=== PATIENT | female | born 1960 | race Caucasian/White ===

== ENCOUNTER 2016-06-20 18:50 | Observation (INO) | payer OTHER ==
[~2016-06-20] VITALS: Ht 170.2 cm; Wt 70.5 kg
[~2016-06-20 18:50] MED LIST: ACET1TAB46 PO; ALBU8.5H3 INH; ALBU8.5H6 IH; ATOR20TA PO; BENZ100C PO; CHOL1CRY3 MC; CYCL10TA2 PO; DOXY-103 PO; FERR-26 PO; FLUT1DIS5 IH; FOLI1TAB16 PO; FURO-68 PO; HYDR-2762 PO; HYDR-2868 PO; HYDR115S2 PO; IPRA3AMP23 IH; LIDO700A4 TP; MERO500V3 IV; METH29OI TP; METO100T11 PO; MORP15TA34 PO; MUPI22OI TP; NIAC10002 PO; NICO1PAT5 TD; NITR0.4T6 SL; NYST15CR2 TP; NYST1POW2 PO; ONDA4TAB7 PO; PANT40TA3 PO; PANT40TA5 PO; PHEN14.52 MM; PRED20TA PO; PREG100C PO; QUET25TA5 PO; RIVA20TA2 PO; SPIR100T PO; SPIR25TA3 PO; SULF1TAB24 PO; TEMA15CA PO; TERI2.4P SQ; TIOT18CA IH; WARF6TAB PO; ZINC220C4 PO
[2016-06-20] MEDS ORDERED: ONDANSETRON PF 4 MG/2 ML VIAL. IV PRN (20:30)
[2016-06-20 20:48] LABS: BASO # 0.1 x10^3/uL (0.0-0.2); BASO % 1 % (0-3); EOS # 0.1 x10^3/uL (0.0-0.7); LYMPH # 1.7 x10^3/uL (1.0-4.8); LYMPH % 21 % (24-48); MEAN CORPUSCULAR HEMOGLOBIN 29 pg (25-35); MEAN CORPUSCULAR HGB CONC 31 g/dL (31-37); MEAN CORPUSCULAR VOLUME 92 fL (79-100); MONO # 0.7 x10^3/uL (0.0-1.1); NEUT # 5.5 x10^3uL (1.8-7.7); RED BLOOD COUNT 2.14 x10^6/uL (3.50-5.40); WHITE BLOOD COUNT 8.1 x10^3/uL (4.0-11.0)
[2016-06-20 20:49] LABS: CALCIUM 8.8 mg/dL (8.5-10.1); CREATININE 2.7 mg/dL (0.6-1.0); GFR 18.2; POTASSIUM 3.7 mmol/L (3.5-5.1)
[2016-06-20 20:53] LABS: PLATELET COUNT 196 x10^3/uL (140-400)
[2016-06-20 20:54] LABS: EOS % 1 % (0-3); MONO % 8 % (0-9); NEUT % 69 % (31-73)
[2016-06-20 20:56] LABS: HEMATOCRIT 19.7 % (36.0-47.0); HEMOGLOBIN 6.1 g/dL (12.0-15.5)
[2016-06-20 22:13] VITALS: BP 168/96
[2016-06-20] MEDS ORDERED: TRAM50TA PO (22:50)
[2016-06-20] MEDS ORDERED: AMLO2.5T2 PO (22:50)
[2016-06-20 23:10] VITALS: BP 130/84
[2016-06-20] MEDS: HYDROCODONE/APAP 7.5/325MG TABLET. PO PRN (23:22)
[2016-06-20] MEDS ORDERED: IV NORMAL SALINE 500ML 500 ML ONE (23:33)
[2016-06-20 23:37] VITALS: BP 141/80
[2016-06-20 23:52] VITALS: BP 136/74
[2016-06-21] VITALS (10 sets, daily range): BP systolic 125–172; BP diastolic 75–103
--- NOTE | 2016-06-21 01:23 | PHYS DOC ---
Past History Past Medical History: Asthma, Bronchitis, COPD, GERD, High Cholesterol, Hypertension Past Surgical History: Cholecystectomy Smoking: Cigarettes Alcohol Use: Rarely Drug Use: None Adult General Chief Complaint Chief Complaint: ABNORMAL LABS HPI HPI 56-year-old female with multiple medical problems including chronic renal failure and COPD presents from her primary care physician's office secondary to a very low hemoglobin and hematocrit. Patient reports that the hemoglobin and hematocrit were 5 and 15. Patient states she has been more short of breath than usual. She denies any fever chills or sweats. She denies any melena or hematemesis. She states she has had a low blood count in the past. [] Review of Systems Review of Systems Constitutional: Denies fever or chills [] Eyes: Denies change in visual acuity, redness, or eye pain [] HENT: Denies nasal congestion or sore throat [] Respiratory: Denies cough or shortness of breath [] Cardiovascular: No additional information not addressed in HPI [] GI: Denies abdominal pain, nausea, vomiting, bloody stools or diarrhea [] : Denies dysuria or hematuria [] Musculoskeletal: Denies back pain or joint pain [] Integument: Denies rash or skin lesions [] Neurologic: Denies headache, focal weakness or sensory changes [] Endocrine: Denies polyuria or polydipsia [] Allergies Allergies Allergies Coded Allergies Type Severity Reaction Last Updated Verified Penicillins Allergy Intermediate Rash 06/29/14 Yes ciprofloxacin Allergy Intermediate RASH- TOLERATES LEVAQUIN 06/29/14 Yes citric acid Allergy Intermediate ALLERGY IS TO CITRUS AND DERIVATIVES 06/29/14 Yes codeine Allergy Intermediate Itching 06/29/14 Yes latex Allergy Intermediate 06/29/14 Yes acetaminophen Allergy Unknown 06/08/14 No aloe vera Allergy Unknown 06/08/14 No Uncoded Allergies Type Severity Reaction Last Updated Verified mushrooms Allergy Unknown 03/15/13 Physical Exam Physical Exam Constitutional: Well developed, well nourished, no acute distress, non-toxic appearance, very talkative. [] HENT: Normocephalic, atraumatic, bilateral external ears normal, oropharynx moist, no oral exudates, nose normal. [] Eyes: PERRLA, EOMI, conjunctiva normal, no discharge. [] Neck: Normal range of motion, no tenderness, supple, no stridor. [] Cardiovascular:Heart rate regular rhythm, no murmur [] Lungs & Thorax: Bilateral breath sounds clear to auscultation [] Abdomen: Bowel sounds normal, soft, no tenderness, no masses, no pulsatile masses. [] Skin: Pale. [] Back: No tenderness, no CVA tenderness. [] Extremities: No tenderness, no cyanosis, no clubbing, ROM intact, no edema. [] Neurologic: Alert and oriented X 3, normal motor function, normal sensory function, no focal deficits noted. [] Psychologic: Affect normal, judgement normal, mood normal. [] Current Patient Data Vital Signs Vital Signs Date Time Temp Pulse Resp B/P Pulse Ox O2 Delivery O2 Flow Rate FiO2 06/21/16 01:00 98.0 73 19 140/75 06/21/16 00:22 98 Nasal Cannula 2.0 Lab Results Laboratory Tests Test 06/20/16 20:25 White Blood Count 8.1x10^3/uL (4.0-11.0) Red Blood Count 2.14x10^6/uL (3.50-5.40) L Hemoglobin 6.1g/dL (12.0-15.5) *L Hematocrit 19.7% (36.0-47.0) *L Mean Corpuscular Volume 92fL (79-100) Mean Corpuscular Hemoglobin 29pg (25-35) Mean Corpuscular Hemoglobin Concent 31g/dL (31-37) Red Cell Distribution Width 17.0% (11.5-14.5) H Platelet Count 196x10^3/uL (140-400) Neutrophils (%) (Auto) 69% (31-73) Lymphocytes (%) (Auto) 21% (24-48) L Monocytes (%) (Auto) 8% (0-9) Eosinophils (%) (Auto) 1% (0-3) Basophils (%) (Auto) 1% (0-3) Neutrophils # (Auto) 5.5x10^3uL (1.8-7.7) Lymphocytes # (Auto) 1.7x10^3/uL (1.0-4.8) Monocytes # (Auto) 0.7x10^3/uL (0.0-1.1) Eosinophils # (Auto) 0.1x10^3/uL (0.0-0.7) Basophils # (Auto) 0.1x10^3/uL (0.0-0.2) Prothrombin Time 10.8SEC (9.4-11.4) Prothrombin Time INR 1.1 (0.9-1.1) Sodium Level 138mmol/L (136-145) Potassium Level 3.7mmol/L (3.5-5.1) Chloride Level 102mmol/L (98-107) Carbon Dioxide Level 28mmol/L (21-32) Anion Gap 8 (6-14) Blood Urea Nitrogen 44mg/dL (7-20) H Creatinine 2.7mg/dL (0.6-1.0) H Estimated GFR (Cockcroft-Gault) 18.2 Glucose Level 100mg/dL (70-99) H Calcium Level 8.8mg/dL (8.5-10.1) EKG EKG [] Radiology/Procedures Radiology/Procedures [] Course & Med Decision Making Course & Med Decision Making Pertinent Labs and Imaging studies reviewed. (See chart for details) [ED course: Evaluation reveals a 56-year-old female who appears pale. Her hemoglobin and hematocrit have actually improved from that which was drawn earlier in the day. A type and crossed her for 2 units of packed red blood cells to be transfused. I spoke with Dr. Jones who agreed to admit the patient for further evaluation.] Dragon Disclaimer Dragon Disclaimer This chart was dictated in whole or in part using Voice Recognition software in a busy, high-work load, and often noisy Emergency Department environment. It may contain unintended and wholly unrecognized errors or omissions. Departure Departure: Impression: Primary Impression: Anemia Disposition: 09 ADMITTED INPATIENT Condition: STABLE Referrals: MYRNA COMBS MD (PCP) Problem Qualifiers Primary Impression: Anemia Anemia type: iron deficiency Iron deficiency anemia type: unspecified iron deficiency Qualified Code: D50.9 - Iron deficiency anemia, unspecified ALYSHA MUELLER DO Jun 21, 2016 01:23
--- NOTE | 2016-06-21 01:31 | ACF ---
Admission Criteria Forms ANEMIA, IRON DEFICIENCY OR UNSPECIFIED Clinical Indications for Inpatient Care (Place 'X' for any and all applicable criteria): Admission is indicated for ANY ONE of the following(1)(2)(3)(4)(5)(6)(7): [X] I. Inpatient admission required rather than observation care (Also use Anemia, Iron Deficiency or Unspecified: Observation Care guideline as appropriate) because of ANY ONE of the following: [] a) Hemodynamic instability that is severe or persistent [] b) Active bleeding that cannot be rapidly controlled [] c) CVS symptoms (i.e., dyspnea, chest pain, heart failure) that are severe or persistent [] d) Neurologic symptoms (i.e., cognitive impairment, recurrent syncope or near syncope) that are severe or persistent [] e) Cardiac arrhythmias of immediate concern [] f) Acute peripheral ischemia (e.g., pulseless, cool, mottled, or cyanotic extremity) [] g) High-risk low platelet count [] h) Acute renal failure [] i) Ongoing transfusion for blood loss (greater than 2 units) [] j) IV fluid to replace significant ongoing (eg, >24 hours) losses (> 3 L/m2 per day) [] k) Pulmonary artery catheter monitoring [] l) Supplemental oxygen or respiratory treatments for over 24 hours that are performable only in acute inpatient setting [] m) Immediate inpatient surgery [X] n) Other condition, treatment or monitoring requiring inpatient admission [] II Active massive hemorrhage [] III. Active hemolysis with rapidly progressive anemia [A](6) Extended stay beyond goal length of stay may be needed for (17)(18) []a) Diagnosed cause of anemia requiring longer hospitalization (eg, active GI bleeding, immune hemolysis requiring electrophoresis, complications of malignancy requiring acute care []b) Continued emergent anemia indicators (23) []c) Transfusion reactions []d) Associated leukopenia or thrombocytopenia needing inpatient care []e) Active comorbidities (eg, renal failure, heart failure) The original [facility] Care Guidelines content created by [facility] has been revised. The portions of the content which have been revised are identified through the use of italic text or in bold. [facility] Guidelines has neither reviewed nor approved the modified material. All other unmodified content is copyright [facility] Care Guidelines. Please see references footnoted in the original [facility] edition 2016 Admission Criteria Met?: Yes SARAHI MOTLEY Jun 21, 2016 01:31
[2016-06-21] MEDS: HYDROCODONE/APAP 7.5/325MG TABLET. PO PRN (05:14)
[2016-06-21] MEDS ORDERED: IPRATRPIUM/ALBUTEROL 0.5/2.5MG 3 ML NEBU. ONE (05:30)
[2016-06-21 06:18] LABS: CALCIUM 8.5 mg/dL (8.5-10.1); CREATININE 2.6 mg/dL (0.6-1.0); POTASSIUM 3.9 mmol/L (3.5-5.1)
[2016-06-21 06:23] LABS: BASO # 0.1 x10^3/uL (0.0-0.2); BASO % 1 % (0-3); EOS # 0.2 x10^3/uL (0.0-0.7); EOS % 2 % (0-3); HEMATOCRIT 24.2 % (36.0-47.0); HEMOGLOBIN 7.8 g/dL (12.0-15.5); LYMPH # 2.2 x10^3/uL (1.0-4.8); LYMPH % 27 % (24-48); MEAN CORPUSCULAR HEMOGLOBIN 29 pg (25-35); MEAN CORPUSCULAR HGB CONC 32 g/dL (31-37); MEAN CORPUSCULAR VOLUME 91 fL (79-100); MONO # 0.8 x10^3/uL (0.0-1.1); MONO % 10 % (0-9); NEUT # 4.9 x10^3uL (1.8-7.7); NEUT % 60 % (31-73); PLATELET COUNT 152 x10^3/uL (140-400); RED BLOOD COUNT 2.66 x10^6/uL (3.50-5.40); RED CELL DISTRIBUTION WIDTH 16.5 % (11.5-14.5); WHITE BLOOD COUNT 8.1 x10^3/uL (4.0-11.0)
[2016-06-21] MEDS ORDERED: TRAMADOL 50 MG TABLET. PO PRN (08:00)
[2016-06-21] MEDS ORDERED: NITROGLYCERIN SUBLINGUAL 0.4 MG BOTTLE OF 25. SL SCH (08:00)
[2016-06-21] MEDS ORDERED: IPRATRPIUM/ALBUTEROL 0.5/2.5MG 3 ML NEBU. IH PRN (08:00)
[2016-06-21] MEDS ORDERED: IPRATRPIUM/ALBUTEROL 0.5/2.5MG 3 ML NEBU. NEB SCH (08:00)
[2016-06-21] MEDS ORDERED: ALBUTEROL SULFATE 2.5 MG/3 ML NEBU. NEB SCH (08:15)
[2016-06-21] MEDS ORDERED: ALBUTEROL SULFATE 2.5 MG/3 ML NEBU. NEB PRN (08:30)
[2016-06-21] MEDS ORDERED: METOPROLOL SUCC 24HR ER 50 MG TAB.ER.24H. PO SCH (09:00)
[2016-06-21] MEDS ORDERED: NON FORMULARY ITEM (Fluticasone/Salmeterol (Advair 500-50 Diskus) 1 EACH) IH SCH (09:00)
[2016-06-21] MEDS ORDERED: FERROUS SULFATE 325 MG TABLET PO SCH (09:00)
[2016-06-21] MEDS ORDERED: PANTOPRAZOLE 40 MG TABLET. PO SCH (09:00)
[2016-06-21] MEDS ORDERED: AMLODIPINE BESYLATE 2.5 MG TABLET PO SCH (09:00)
[2016-06-21] MEDS ORDERED: FOLIC ACID 1 MG TABLET PO SCH (09:00)
[2016-06-21] MEDS ORDERED: PREGABALIN 100 MG CAPSULE PO SCH (09:00)
[2016-06-21] MEDS ORDERED: CYCLOBENZAPRINE 10 MG TABLET. PO SCH (09:00)
[2016-06-21] MEDS ORDERED: CHOLECALCIFEROL 1 GM MC SCH (09:00)
--- NOTE | 2016-06-21 13:13 | SSS ---
ADMIT DATE: 06/21/2016 Care was given in its entirety by Dr. Ana Tony. Stay was greater than 8 hours and less than 24 hours. DISCHARGE DIAGNOSES: 1. Severe anemia. 2. Status post blood transfusion. 3. Chronic renal failure. 4. Continued tobacco use disorder. 5. History of hematuria. 6. Hypercholesterolemia. 7. Hypertension. 8. Right hemiplegia. 9. Fall risk. BRIEF HOSPITALIZATION: This is a 56-year-old female, who was sent to the Emergency Room because of hemoglobin of 5 and 15 from her primary care doctor's office. The hemoglobin was 6.1 in the Emergency Room and she was admitted. She received 2 units of packed cells, which she tolerated well. The patient has had extensive workup for hematuria including clots that happened sometimes when her catheterizes her. She also has intermittently very clear urine without blood, but no cause of the hematuria can be ascertained. She does have chronic renal failure and atrophic kidneys. She states that she is under the care of a renal doctor. ALLERGIES: PENICILLIN, TYLENOL, ALOE VERA, CIPRO, CITRIC ACID, CODEINE, LATEX, and MUSHROOMS. MEDICATIONS: Reviewed and are available on the MAR. HOSPITAL COURSE: She was admitted, received 2 units of packed cells. There is no evidence of bleeding or hematuria and she tolerated the blood transfusions. PHYSICAL EXAMINATION: VITAL SIGNS: Blood pressure was 172/97, pulse 83, pulse ox 97% on 2 liters. GENERAL: Color is pale. HEENT: Her tongue was moist. She is edentulous. NECK: Supple. LUNGS: Clear. CARDIOVASCULAR: Regular rhythm and rate. ABDOMEN: Soft, nontender. EXTREMITIES: Without edema. NEUROLOGIC: She has right hemiplegia. LABORATORY DATA: BUN is 40, creatinine is 2.6 and her discharge hemoglobin was 7.8. DISPOSITION: To home, to keep a close eye on any further bleeding, return if any bleeding is observed. Follow up with Dr. Loera next week and all old scans were reviewed as well, but if she needs some type of EGD and colonoscopy, will have to be done as an outpatient. We will leave that to her primary care doctor. ANA TONY DO DR: BO/rekha JOB#: [id number] / [id number]
[2016-06-21] MEDS ORDERED: BUDESONIDE 0.5 MG/2 ML NEBU NEB SCH (20:00)
[2016-06-21] MEDS ORDERED: ATORVASTATIN CALCIUM 10 MG TABLET. PO SCH (21:00)
== END 2016-06-21 10:21 | disposition home or self-care (01) ==
LOC: ER 18:52 → INTOOBSV 20:24 → ICU 20:24
PROVIDERS: ADMIT Family Medicine; ATTEND Family Medicine
DX: D64.9 Anemia, unspecified (principal); I12.9 Hypertensive chronic kidney disease with stage 1 through stage 4 chronic kidney disease, or unspecified chronic kidney disease; N18.9 Chronic kidney disease, unspecified; Z72.0 Tobacco use; R31.9 Hematuria, unspecified; E78.00 Pure hypercholesterolemia, unspecified; J44.9 Chronic obstructive pulmonary disease, unspecified; J45.909 Unspecified asthma, uncomplicated; Z91.81 History of falling
CPT/HCPCS: 36415; 80048; 85027; 85610; 86850; 86900; 86901; 86920; 87641; 94640; G0378; G0379; J7040; P9016; J7620; 99285-25

== ENCOUNTER → 2017-01-04 | Outpatient (CLI) | payer OTHER ==
[2016-06-21 08:55] VITALS: BP 172/97
[~2017-01-04] MED LIST changes: +ACET-422 PO; -ACET1TAB46 PO; -ALBU8.5H3 INH; +ALBU8.5H8 INH; +AMLO2.5T2 PO; +CYCL-331 PO; -CYCL10TA2 PO; -DOXY-103 PO; +DOXY100T10 PO; +MERO500V15 IV; -MERO500V3 IV; +METO-247 PO; -METO100T11 PO; -MORP15TA34 PO; +MORP15TA80 PO; +NITR0.4T22 SL; -NITR0.4T6 SL; +TRAM50TA PO
[2017-01-04 13:52] LABS: CALCIUM 9.2 mg/dL (8.5-10.1); CREATININE 3.4 mg/dL (0.6-1.0); PHOSPHORUS 5.3 mg/dL (2.6-4.7); POTASSIUM 3.9 mmol/L (3.5-5.1)
[2017-01-04 13:55] LABS: BASO # 0.1 x10^3/uL (0.0-0.2); BASO % 1 % (0-3); EOS # 0.3 x10^3/uL (0.0-0.7); EOS % 6 % (0-3); HEMATOCRIT 31.8 % (36.0-47.0); HEMOGLOBIN 10.4 g/dL (12.0-15.5); LYMPH # 1.6 x10^3/uL (1.0-4.8); LYMPH % 30 % (24-48); MEAN CORPUSCULAR HEMOGLOBIN 32 pg (25-35); MEAN CORPUSCULAR HGB CONC 33 g/dL (31-37); MEAN CORPUSCULAR VOLUME 98 fL (79-100); MONO # 0.4 x10^3/uL (0.0-1.1); MONO % 8 % (0-9); NEUT % 56 % (31-73); PLATELET COUNT 125 x10^3/uL (140-400); RED BLOOD COUNT 3.25 x10^6/uL (3.50-5.40); RED CELL DISTRIBUTION WIDTH 15.3 % (11.5-14.5); WHITE BLOOD COUNT 5.3 x10^3/uL (4.0-11.0)
[2017-01-04 16:07] LABS: BILIRUBIN,URINE NEG (NEG); CLARITY,URINE CLOUDY; COLOR,URINE YELLOW; GLUCOSE,URINE NEG (NEG); NITRITE,URINE POS (NEG); UROBILINOGEN,URINE 0.2 mg/dL (0.2 mg/dL)
[2017-01-04 16:08] LABS: BACTERIA,URINE FEW /HPF (0-FEW); WBC,URINE >40 /HPF (0-4)
[2017-01-05 14:09] LABS: CALCIUM PTH 9.3 mg/dL (8.7-10.2); CREATININE PTH 3.19 mg/dL (0.57-1.00); PTH INTACT 241 pg/mL (15-65)
== END | disposition home or self-care (01) ==
LOC: LAB 12:25
PROVIDERS: ATTEND Nurse Practitioner Family
DX: I12.0 Hypertensive chronic kidney disease with stage 5 chronic kidney disease or end stage renal disease (principal); N18.5 Chronic kidney disease, stage 5; D63.1 Anemia in chronic kidney disease; N13.30 Unspecified hydronephrosis
CPT/HCPCS: 36415; 80069; 81001; 83735; 83970; 85025; 87086

== ENCOUNTER → 2017-01-31 | Outpatient (CLI) | payer OTHER ==
[2016-06-21 08:55] VITALS: BP 172/97
--- NOTE | 2017-01-31 14:24 | RAD ---
Indication chronic kidney disease. History of smoking. Protocol study. Frontal and lateral views of the chest were obtained and are compared to an exam 12/30/2015. There is moderate hyperexpansion similar to the previous exam. The lungs are clear of acute infiltrates. Heart and pulmonary vessels are similar. There is scarring in the right upper lobe appearing similar to the previous exam. An acute parenchymal infiltrate is not seen. Right shoulder prosthesis and kyphoplasty changes are noted. IMPRESSION: Chronic changes. No acute finding or significant change
[2017-02-01 17:12] LABS: HEP B SURFACE ABDY Reactive (.)
== END | disposition home or self-care (01) ==
LOC: LAB 13:48
PROVIDERS: ATTEND Nurse Practitioner Family
DX: I12.0 Hypertensive chronic kidney disease with stage 5 chronic kidney disease or end stage renal disease (principal); N18.5 Chronic kidney disease, stage 5; J98.4 Other disorders of lung; Z96.611 Presence of right artificial shoulder joint; Z98.890 Other specified postprocedural states; Z87.891 Personal history of nicotine dependence
CPT/HCPCS: 36415; 71020; 86704; 86706; 87340

== ENCOUNTER 2017-04-30 14:20 | Emergency (ER) | payer OTHER ==
--- NOTE | 2017-04-30 15:06 | RAD ---
Two-view right hip 04/30/2017 Clinical indication: Right hip pain. Comparison: Right hip 08/14/2013 Findings: Prior internal fixation of the proximal right femur. There is foreshortening of the right proximal femur which limits evaluation. The right femoral head is round without collapse. No definite fracture is identified. There are vascular calcifications of the proximal right thigh. Impression: 1. Significantly limited examination due to foreshortened anatomy and repeat radiograph is recommended. 2. Prior proximal femur internal fixation.
--- NOTE | 2017-04-30 16:08 | PHYS DOC ---
Past History Past Medical History: Asthma, Bronchitis, COPD, GERD, High Cholesterol, Hypertension Past Surgical History: Cholecystectomy Smoking: Cigarettes Alcohol Use: Rarely Drug Use: None Adult General Chief Complaint Chief Complaint: HIP PAIN HPI HPI Patient is a 57 year old F who presents with right hip pain that seems to be worse since sitting down hard yesterday in her chair. She has had a fracture of the right hip with previous fixation. She occasionally has pain in this hip. She feels that this pain is constant dull and worse with palpation or movement. Her pain is improved with positioning and rest. She has no other associated symptoms. She has no other exacerbating or alleviating factors. Review of Systems Review of Systems Constitutional: Denies fever or chills [] Eyes: Denies change in visual acuity, redness, or eye pain [] HENT: Denies nasal congestion or sore throat [] Respiratory: Denies cough or shortness of breath [] Cardiovascular: No additional information not addressed in HPI [] GI: Denies abdominal pain, nausea, vomiting, bloody stools or diarrhea [] : Denies dysuria or hematuria [] Musculoskeletal: Denies back pain or joint pain [] Integument: Denies rash or skin lesions [] Neurologic: Denies headache, focal weakness or sensory changes [] Endocrine: Denies polyuria or polydipsia [] All other systems were reviewed and found to be within normal limits, except as documented in this note. Family History Family History No pertinent family medical history was reported Current Medications Current Medications Current medications were reviewed Allergies Allergies Allergies Coded Allergies Type Severity Reaction Last Updated Verified Penicillins Allergy Intermediate Rash 06/29/14 Yes ciprofloxacin Allergy Intermediate RASH- TOLERATES LEVAQUIN 06/29/14 Yes citric acid Allergy Intermediate ALLERGY IS TO CITRUS AND DERIVATIVES 06/29/14 Yes codeine Allergy Intermediate Itching 06/29/14 Yes latex Allergy Intermediate 06/29/14 Yes I S O L A T I O N *CONTACT* Allergy Unknown 06/21/16 Yes acetaminophen Allergy Unknown 06/08/14 No aloe vera Allergy Unknown 06/08/14 No Uncoded Allergies Type Severity Reaction Last Updated Verified mushrooms Allergy Unknown 03/15/13 Physical Exam Physical Exam Constitutional: Well developed, well nourished, no acute distress, non-toxic appearance. [] HENT: Normocephalic, atraumatic Eyes: EOMI, conjunctiva normal, no discharge. [] Neck: Normal range of motion, no tenderness, supple, no stridor. [] Cardiovascular:Heart rate regular rhythm Lungs & Thorax: Bilateral breath sounds clear to auscultation [] Abdomen: Bowel sounds normal, soft, no tenderness, no masses, no pulsatile masses. [] Skin: Warm, dry, no erythema, no rash. [] Extremities: no cyanosis, no clubbing, ROM intact, no edema. [] No obvious signs of injury to the right hip. Moderate tenderness to palpation over the lateral hip minimal tenderness with range of motion. Neurovascularly intact Neurologic: Alert and oriented X 3, normal motor function, normal sensory function, no focal deficits noted. [] Psychologic: Affect normal, judgement normal, mood normal. [] Current Patient Data Vital Signs Vital Signs Date Time Temp Pulse Resp B/P (MAP) Pulse Ox O2 Delivery O2 Flow Rate FiO2 04/30/17 14:48 97.3 66 26 100 Nasal Cannula 2.0 EKG EKG [] Radiology/Procedures Radiology/Procedures Hip x-ray Impressions: No acute disease noted. Radiology did compare with previous studies and found no changes Course & Med Decision Making Course & Med Decision Making Pertinent Labs and Imaging studies reviewed. (See chart for details) [] Dragon Disclaimer Dragon Disclaimer This electronic medical record was generated, in whole or in part, using a voice recognition dictation system. Departure Departure: Impression: Primary Impression: Hip pain Disposition: HOME, SELF-CARE Condition: STABLE Referrals: MYRNA COMBS MD (PCP) Patient Instructions: Hip Pain Additional Instructions: Katherine was seen in the emergency department for hip pain. No emergency medical condition was found on history or physical exam. She did have normal x-rays. She is advised to consider lidocaine patches to help manage her pain. She is also advised follow-up with her primary care doctor as needed for further management. Problem Qualifiers Primary Impression: Hip pain Laterality: right Qualified Codes: M25.551 - Pain in right hip BREE TARIQ MD Apr 30, 2017 16:08
[2017-04-30 16:34] VITALS: BP 128/72
== END 2017-04-30 16:38 | disposition home or self-care (01) ==
LOC: ER 14:20
DX: M25.551 Pain in right hip (principal); J44.9 Chronic obstructive pulmonary disease, unspecified; K21.9 Gastro-esophageal reflux disease without esophagitis; E78.00 Pure hypercholesterolemia, unspecified; I10 Essential (primary) hypertension; F17.210 Nicotine dependence, cigarettes, uncomplicated; Z88.5 Allergy status to narcotic agent; Z88.0 Allergy status to penicillin; Z88.8 Allergy status to other drugs, medicaments and biological substances; Z88.1 Allergy status to other antibiotic agents; Z91.041 Radiographic dye allergy status; Z91.040 Latex allergy status
CPT/HCPCS: 73502; 99284

== ENCOUNTER 2017-10-01 20:45 | Emergency (ER) | payer OTHER ==
[~2017-10-01] VITALS: Ht 170.2 cm; Wt 95.0 kg
[~2017-10-01 20:45] MED LIST changes: -FERR-26 PO; +FERR325T14 PO; -SPIR25TA3 PO; +SPIR25TA5 PO
[2017-10-01] MEDS ORDERED: IV RINGERS SOLUTION,LACTATED 1,000 ML IV SCH (20:58)
--- NOTE | 2017-10-01 20:58 | ED.ADGEN ---
Past History Past Medical History: Asthma, Bronchitis, COPD, GERD, High Cholesterol, Hypertension, Other Past Surgical History: Cholecystectomy, Other Smoking: Cigarettes Alcohol Use: Rarely Drug Use: None Adult General Chief Complaint Chief Complaint ".. I ve been really short ... of ... breath.... and coughing... now coughing ... some blood... I missed my dialysis..." [facility] HPI Patient is a 57 year old female who presents with above hx and complaints of cough and hemoptysis. Patient has history of significant COPD with frequent exacerbations. 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 Pt. still smoke 2 packs a day. Pt. hx of CHF and get HD on , , and Fridays. Pt. does still produce urine- and is cath bid for retention. Patient did miss her dialysis on Sunday. No specific ill contacts. Change in medications. No recent travel. Patient denies immunosuppression. Patient states all her doctors at [facility], Dr. Loera for nephrology, Dr. Tucker for pulmonology, and Dr. Jeniffer Cespedes is a primary. Patient also has a data solutions architect [facility] but she does not remember their name . Patient currently requiring 4 L to maintain saturation. Patient states normally she only requires 2 when she gets short of breath. Review of Systems Review of Systems Constitutional: Subjective history fever or chills [] Eyes: Denies change in visual acuity, redness, or eye pain [] HENT: Denies nasal congestion or sore throat [] Respiratory: History of cough or shortness of breath [] Cardiovascular: No additional information not addressed in HPI [] GI: Denies abdominal pain, nausea, vomiting, bloody stools or diarrhea [] : Denies dysuria or hematuria [] Musculoskeletal: Denies back pain or joint pain [] Integument: Denies rash or skin lesions [] Neurologic: Denies headache, focal weakness or sensory changes [] Endocrine: Denies polyuria or polydipsia [] All other systems were reviewed and found to be within normal limits, except as documented in this note. Family History Family History Noncontributory Current Medications Current Medications Current Medications Medications (Trade) Dose Ordered Sig/Nadir Start Time Stop Time Status Last Admin Dose Admin Albuterol/ Ipratropium (Duoneb) 3 ml 1X ONCE 10/01/17 21:15 10/01/17 21:16 DC 10/01/17 21:39 3 ML Clindamycin Phosphate 50 ml @ 100 mls/hr 1X ONCE 10/01/17 23:30 10/01/17 23:59 DC 10/01/17 23:27 100 MLS/HR Furosemide (Lasix) 40 mg 1X ONCE 10/01/17 23:30 10/01/17 23:31 DC 10/01/17 23:28 40 MG Lactated Ringer's 1,000 ml @ 1,000 mls/hr Q1H 10/01/17 20:58 10/01/17 21:57 DC 10/01/17 23:03 1,000 MLS/HR Lidocaine HCl (Xylocaine 2% Topical 30gm Tube) 30 rosita STK-MED ONCE 10/02/17 00:38 10/02/17 00:39 DC Methylprednisolone Sodium Succinate (SOLU-Medrol 125MG VIAL) 125 mg 1X ONCE 10/01/17 21:15 10/01/17 21:16 DC 10/01/17 23:03 125 MG Allergies Allergies Allergies Coded Allergies Type Severity Reaction Last Updated Verified Penicillins Allergy Intermediate Rash 06/29/14 Yes ciprofloxacin Allergy Intermediate RASH- TOLERATES LEVAQUIN 06/29/14 Yes citric acid Allergy Intermediate ALLERGY IS TO CITRUS AND DERIVATIVES 06/29/14 Yes codeine Allergy Intermediate Itching 06/29/14 Yes latex Allergy Intermediate 06/29/14 Yes I S O L A T I O N *CONTACT* Allergy Unknown 06/21/16 Yes acetaminophen Allergy Unknown 06/08/14 No aloe vera Allergy Unknown 06/08/14 No Uncoded Allergies Type Severity Reaction Last Updated Verified mushrooms Allergy Unknown 03/15/13 Physical Exam Physical Exam Constitutional: in acute distress, non-toxic appearance. [] HENT: Normocephalic, atraumatic, bilateral external ears normal, oropharynx moist, no oral exudates, nose normal. [] Eyes: PERRLA, EOMI, conjunctiva normal, no discharge. [] Neck: Normal range of motion, no tenderness, supple, no stridor. [] JVD Cardiovascular: Tachycardia Heart rate regular rhythm, no murmur []PVC per monitor. Lungs & Thorax: Bilateral breath sounds diffuse wheezing, rhonchi, crackles on auscultation [] Abdomen: Bowel sounds decreased, soft, no tenderness, no masses, no pulsatile masses. [] Skin: Warm, dry, no erythema, no rash. [] Poor turgor Back: No tenderness, no CVA tenderness. [] Kyphosis Extremities: No tenderness, no cyanosis, no clubbing, ROM intact, ankle edema. [ ]Rt. shoulder scar. Good thrill Rt. upper arm AV shunt. Neurologic: Alert and oriented X 3, moves all ext. on request, , no gross focal deficits noted. [] Psychologic: Affect anxious, judgement normal, mood depressed. Current Patient Data Vital Signs Vital Signs Date Time Temp Pulse Resp B/P (MAP) Pulse Ox O2 Delivery O2 Flow Rate FiO2 10/01/17 21:42 95 Nasal Cannula 5.0 10/01/17 21:15 98.2 89 20 Lab Results Laboratory Tests Test 10/01/17 21:43 10/02/17 00:50 White Blood Count 10.6 x10^3/uL (4.0-11.0) Red Blood Count 3.57 x10^6/uL (3.50-5.40) Hemoglobin 12.3 g/dL (12.0-15.5) Hematocrit 36.6 % (36.0-47.0) Mean Corpuscular Volume 102 fL (79-100) H Mean Corpuscular Hemoglobin 35 pg (25-35) Mean Corpuscular Hemoglobin Concent 34 g/dL (31-37) Red Cell Distribution Width 14.0 % (11.5-14.5) Platelet Count 136 x10^3/uL (140-400) L Neutrophils (%) (Auto) 82 % (31-73) H Lymphocytes (%) (Auto) 11 % (24-48) L Monocytes (%) (Auto) 6 % (0-9) Eosinophils (%) (Auto) 1 % (0-3) Basophils (%) (Auto) 0 % (0-3) Neutrophils # (Auto) 8.8 x10^3uL (1.8-7.7) H Lymphocytes # (Auto) 1.1 x10^3/uL (1.0-4.8) Monocytes # (Auto) 0.6 x10^3/uL (0.0-1.1) Eosinophils # (Auto) 0.1 x10^3/uL (0.0-0.7) Basophils # (Auto) 0.0 x10^3/uL (0.0-0.2) Prothrombin Time 10.9 SEC (9.4-11.4) Prothrombin Time INR 1.1 (0.9-1.1) PTT 29 SEC (23-33) D-Dimer (Meghna) 1.12 mg/L (0.00-0.50) H Sodium Level 135 mmol/L (136-145) L Potassium Level 4.2 mmol/L (3.5-5.1) Chloride Level 97 mmol/L (98-107) L Carbon Dioxide Level 31 mmol/L (21-32) Anion Gap 7 (6-14) Blood Urea Nitrogen 41 mg/dL (7-20) H Creatinine 2.5 mg/dL (0.6-1.0) H Estimated GFR (Cockcroft-Gault) 19.9 Glucose Level 80 mg/dL (70-99) Calcium Level 9.4 mg/dL (8.5-10.1) Magnesium Level 2.0 mg/dL (1.8-2.4) Total Bilirubin 0.4 mg/dL (0.2-1.0) Direct Bilirubin 0.1 mg/dL (0.0-0.2) Aspartate Amino Transferase (AST) 14 U/L (15-37) L Alanine Aminotransferase (ALT) 12 U/L (14-59) L Alkaline Phosphatase 143 U/L (46-116) H Creatine Kinase 21 U/L (26-192) L Creatine Kinase MB (Mass) 0.8 ng/mL (0.0-3.6) Creatine Kinase MB Relative Index 3.8 % (0-4) Troponin I Quantitative < 0.017 ng/mL (0-0.055) OR-Zbn-P-Type Natriuretic Peptide 3694 pg/mL (0-124) H Total Protein 7.3 g/dL (6.4-8.2) Albumin 2.7 g/dL (3.4-5.0) L Lipase 82 U/L (73-393) Urine Collection Type Unknown Urine Color Yellow Urine Clarity Hazy Urine pH 6.0 Urine Specific [place] <=1.005 Urine Protein 30 mg/dl (NEG-TRACE) Urine Glucose (UA) Neg mg/dL (NEG) Urine Ketones (Stick) Neg mg/dL (NEG) Urine Blood Trace (NEG) Urine Nitrite Pos (NEG) Urine Bilirubin Neg (NEG) Urine Urobilinogen Dipstick 0.2 mg/dL (0.2 mg/dL) Urine Leukocyte Esterase Large (NEG) Urine RBC 1-2 /HPF (0-2) Urine WBC 11-20 /HPF (0-4) Urine Squamous Epithelial Cells Occ /LPF Urine Bacteria Mod /HPF (0-FEW) Urine Opiates Screen Pos (NEG) Urine Methadone Screen Neg (NEG) Urine Barbiturates Neg (NEG) Urine Phencyclidine Screen Neg (NEG) Urine Amphetamine/Methamphetamine Neg (NEG) Urine Benzodiazepines Screen Neg (NEG) Urine Cocaine Screen Neg (NEG) Urine Cannabinoids Screen Neg (NEG) Urine Ethyl Alcohol Neg (NEG) EKG EKG My interpretation of EKG shows low voltage heart rate 91 bpm. There is left axis deviation. There is a left anterior fascicular block. No findings acute STEMI with contralateral changes.[] Radiology/Procedures Radiology/Procedures My interpretation of chest x-ray shows chronic lung disease, or expansion with increased cephalization consistent with CHF. Does have findings of vertebral plasty. And right shoulder replacement.[] Some screws in lumbar spine area. See formal report when available. Course & Med Decision Making Course & Med Decision Making Pertinent Labs and Imaging studies reviewed. (See chart for details) Patient and requesting transfer to [facility].- Pt. primary and consults are there. Discussed presentation, testing and tx. plan with Dr. Mitchell social professionals for admits- Will accept for admit- for pulmonary, cardiology and nephrology consults as needed. Critical Care 60 min. [] Final Impression Final Impression 1. Respiratory Failure Acute on Chronic- Hypoxia [] 2. COPD exacerbation 3. Hemoptysis 4. Tobacco Abuse 5. CHF- BNP 3, 694 6. ESRDz with HD ,w, sunday 7. Elevated D-dimer 8. Macrocytic Indices 9. Elevated BUN/ Creat. Dragon Disclaimer Dragon Disclaimer This electronic medical record was generated, in whole or in part, using a voice recognition dictation system. REBECCA PRYOR MD Oct 01, 2017 20:58
--- NOTE | 2017-10-01 21:14 | EKG ---
[address] [address] Test Date: 2017-10-01 Test Time: 21:08:51 Pat Name: BONNIE YOUNG Department: Room: Gender: F [employer] Interpretive Specialist: PORSCHE : 1960 Requested By: REBECCA PRYOR Order Number: [id number] Reading MD: Jagdeep Russlel MD Measurements Intervals [place] Rate: 91 P: 38 ID: [id number] QRS: -55 QRSD: 100 T: 64 QT: 360 QTc: 444 Interpretive Statements SINUS RHYTHM ABNORMAL LEFT AXIS DEVIATION R-S TRANSITION ZONE IN V LEADS DISPLACED TO THE LEFT LOW LIMB LEAD VOLTAGE LEFT ANTERIOR FASCICULAR BLOCK QRS(T) CONTOUR ABNORMALITY CONSIDER ANTEROLATERAL MYOCARDIAL DAMAGE ABNORMAL ECG RI6.01 Electronically Signed On 10-02-2017 10:27:05 CDT by Jagdeep Russell MD
[2017-10-01] MEDS ORDERED: IPRATRPIUM/ALBUTEROL 0.5/2.5MG 3 ML NEBU. NEB ONE (21:15)
[2017-10-01] MEDS ORDERED: methylPREDNISolone SOD SUCC PF 125 MG/2 ML VIAL. IV ONE (21:15)
[2017-10-01 22:18] LABS: BASO % 0 % (0-3); EOS # 0.1 x10^3/uL (0.0-0.7); EOS % 1 % (0-3); HEMATOCRIT 36.6 % (36.0-47.0); HEMOGLOBIN 12.3 g/dL (12.0-15.5); LYMPH # 1.1 x10^3/uL (1.0-4.8); LYMPH % 11 % (24-48); MEAN CORPUSCULAR HEMOGLOBIN 35 pg (25-35); MEAN CORPUSCULAR HGB CONC 34 g/dL (31-37); MEAN CORPUSCULAR VOLUME 102 fL (79-100); MONO # 0.6 x10^3/uL (0.0-1.1); MONO % 6 % (0-9); NEUT # 8.8 x10^3uL (1.8-7.7); NEUT % 82 % (31-73); PLATELET COUNT 136 x10^3/uL (140-400); RED BLOOD COUNT 3.57 x10^6/uL (3.50-5.40); WHITE BLOOD COUNT 10.6 x10^3/uL (4.0-11.0)
[2017-10-01 22:36] LABS: ALBUMIN 2.7 g/dL (3.4-5.0); CALCIUM 9.4 mg/dL (8.5-10.1); CREATININE 2.5 mg/dL (0.6-1.0); DIRECT BILIRUBIN 0.1 mg/dL (0.0-0.2); GFR 19.9; POTASSIUM 4.2 mmol/L (3.5-5.1); TOTAL BILIRUBIN 0.4 mg/dL (0.2-1.0); TOTAL PROTEIN 7.3 g/dL (6.4-8.2)
[2017-10-01] MEDS ORDERED: CLINDAMYCIN 600MG PREMIX 50 ML IV ONE (23:30)
[2017-10-01] MEDS ORDERED: FUROSEMIDE 40 MG/4 ML VIAL IVP ONE (23:30)
--- NOTE | 2017-10-01 23:42 | RAD ---
PA and lateral chest radiographs 10/01/2017 CLINICAL HISTORY: Chest pain and hemoptysis. Shortness of breath. PA and lateral digital radiographs of the chest were obtained. Comparison study is dated 01/31/2017. The patient is post right shoulder joint replacement. Fiducial markers are seen within the right upper lobe, unchanged. The patient is post lower thoracic kyphoplasty, unchanged. The cardiac silhouette is normal in size. The thoracic aorta is tortuous. Atherosclerotic calcification of the thoracic aorta is seen. Areas of scarring are seen involving both upper lobes. No acute pulmonary infiltrate is seen. No pneumothorax or pleural effusion is noted. There is diffuse osteopenia of the visualized bony structures. Degenerative changes are seen involving the thoracic spine. Pedicle screws are seen involving lower lumbar spine. IMPRESSION: No acute abnormality is seen. Electronically signed by: Richie Cinseros MD (10/01/2017 11:39 PM) [facility]
[2017-10-02 00:35] VITALS: BP 140/77
[2017-10-02] MEDS ORDERED: LIDOCAINE 2% TOPICAL JELLY 30GM TUBE. TP ONE (00:38)
[2017-10-02 01:24] LABS: BILIRUBIN,URINE NEG (NEG); CLARITY,URINE HAZY; COLOR,URINE YELLOW; GLUCOSE,URINE NEG (NEG); UROBILINOGEN,URINE 0.2 mg/dL (0.2 mg/dL)
[2017-10-02 01:25] LABS: BACTERIA,URINE MOD /HPF (0-FEW); NITRITE,URINE POS (NEG); SQUAMOUS EPITHELIAL CELL,UR OCC /LPF
[2017-10-02 01:28] LABS: BARBITURATES NEG (NEG); BENZODIAZEPINES NEG (NEG); CANNABINOIDS NEG (NEG); COCAINE NEG (NEG); METHADONE NEG (NEG); OPIATES POS (NEG); PHENCYCLIDINE NEG (NEG)
[2017-10-02 01:30] LABS: AMPHETAMINE/METHAMPHETAMINE NEG (NEG)
== END 2017-10-02 01:00 | disposition short-term general hospital (02) ==
LOC: ER 20:45
DX: J96.21 Acute and chronic respiratory failure with hypoxia (principal); J44.1 Chronic obstructive pulmonary disease with (acute) exacerbation; R04.2 Hemoptysis; F17.210 Nicotine dependence, cigarettes, uncomplicated; I13.2 Hypertensive heart and chronic kidney disease with heart failure and with stage 5 chronic kidney disease, or end stage renal disease; N18.6 End stage renal disease; I50.9 Heart failure, unspecified; R79.1 Abnormal coagulation profile; D53.9 Nutritional anemia, unspecified; R79.89 Other specified abnormal findings of blood chemistry; K21.9 Gastro-esophageal reflux disease without esophagitis; E78.00 Pure hypercholesterolemia, unspecified; Z99.2 Dependence on renal dialysis; Z88.0 Allergy status to penicillin; Z88.1 Allergy status to other antibiotic agents; Z88.5 Allergy status to narcotic agent; Z91.041 Radiographic dye allergy status; Z91.040 Latex allergy status; Z88.6 Allergy status to analgesic agent; Z88.8 Allergy status to other drugs, medicaments and biological substances
CPT/HCPCS: 36415; 51701; 71046; 80048; 80076; 80307; 81001; 82553; 83690; 83735; 83880; 84443; 84484; 85025; 85379; 85610; 85730; 87040; 93005; 94640; 96365; 96366; 96375; 99291; J1940; J2930; J3490; J7120; J7620; 87086; G0479

== ENCOUNTER → 2018-04-25 | Outpatient (CLI) | payer MEDICARE, OTHER ==
[~2018-04-25] MED LIST changes: +ALBU2.5V8 INH; -ALBU8.5H8 INH; -HYDR-2762 PO; +HYDR-2765 PO
[2018-04-25 17:07] LABS: BACTERIA,URINE MANY /HPF (0-FEW); BILIRUBIN,URINE NEG (NEG); CLARITY,URINE CLOUDY; COLOR,URINE YELLOW; GLUCOSE,URINE NEG (NEG); NITRITE,URINE NEG (NEG); UROBILINOGEN,URINE 0.2 mg/dL (0.2 mg/dL); WBC,URINE TNTC /HPF (0-4)
[2018-04-25 17:08] LABS: SQUAMOUS EPITHELIAL CELL,UR FEW /LPF
== END | disposition home or self-care (01) ==
LOC: LAB 15:37
PROVIDERS: ATTEND Internal Medicine
DX: R30.0 Dysuria (principal)
CPT/HCPCS: 81001

== ENCOUNTER → 2018-05-24 | Outpatient (CLI) | payer MEDICARE, OTHER ==
[2018-05-24 16:03] LABS: BILIRUBIN,URINE NEG (NEG); CLARITY,URINE CLOUDY; COLOR,URINE STRAW; GLUCOSE,URINE NEG (NEG); NITRITE,URINE NEG (NEG); UROBILINOGEN,URINE 0.2 mg/dL (0.2 mg/dL)
[2018-05-24 16:04] LABS: BACTERIA,URINE MANY /HPF (0-FEW); SQUAMOUS EPITHELIAL CELL,UR OCC /LPF; WBC,URINE TNTC /HPF (0-4)
== END | disposition home or self-care (01) ==
LOC: LAB 14:49
PROVIDERS: ATTEND Internal Medicine
DX: R30.0 Dysuria (principal)
CPT/HCPCS: 81001; 87086; 87186

== ENCOUNTER → 2018-05-24 | Outpatient (CLI) | payer MEDICARE, OTHER ==
[2018-05-25 05:11] LABS: TOTAL SERUM CREATININE 2.21 mg/dL (0.57-1.00); TOTAL URINE CREATININE 32.6 mg/dL (Not Estab.)
== END | disposition home or self-care (01) ==
LOC: LAB 14:39
PROVIDERS: ATTEND Internal Medicine Nephrology
DX: I13.2 Hypertensive heart and chronic kidney disease with heart failure and with stage 5 chronic kidney disease, or end stage renal disease (principal); E11.22 Type 2 diabetes mellitus with diabetic chronic kidney disease; I50.9 Heart failure, unspecified; N18.6 End stage renal disease; N17.9 Acute kidney failure, unspecified
CPT/HCPCS: 36415; 82575

== ENCOUNTER → 2018-07-24 | Outpatient (CLI) | payer MEDICARE, OTHER ==
[2018-07-24 15:41] LABS: BACTERIA,URINE MANY /HPF (0-FEW); BILIRUBIN,URINE NEG (NEG); CLARITY,URINE CLOUDY; COLOR,URINE YELLOW; GLUCOSE,URINE NEG (NEG); NITRITE,URINE NEG (NEG); SQUAMOUS EPITHELIAL CELL,UR MOD /LPF; UROBILINOGEN,URINE 0.2 mg/dL (0.2 mg/dL); WBC,URINE TNTC /HPF (0-4)
== END | disposition home or self-care (01) ==
LOC: LAB 15:16
PROVIDERS: ATTEND Internal Medicine
DX: R82.90 Unspecified abnormal findings in urine (principal)
CPT/HCPCS: 81001; 87086; 87186